=== PATIENT | female | born 1960 | race Caucasian/White ===

== ENCOUNTER 2022-05-17 12:18 | Emergency (ER) | payer MEDICARE ==
[2022-05-17] MEDS ORDERED: predniSONE 20 MG TAB ONE (13:24)
[2022-05-17] MEDS ORDERED: AMOXicillin 250 MG CAP ONE (13:24)
== END 2022-05-17 13:33 | disposition home or self-care (01) ==
LOC: NAV ERS 12:18
DX: J06.9 Acute upper respiratory infection, unspecified (principal); J44.9 Chronic obstructive pulmonary disease, unspecified; I10 Essential (primary) hypertension; F17.210 Nicotine dependence, cigarettes, uncomplicated
CPT/HCPCS: 71046; 87804; J7512

== ENCOUNTER 2024-03-26 09:01 | Emergency (ER) | payer OTHER, SELFPAY | END 2024-03-26 10:34 | disposition home or self-care (01) | LOC: NAV ERS 09:01 | DX: S92.415A Nondisplaced fracture of proximal phalanx of left great toe, initial encounter for closed fracture (principal); S93.401A Sprain of unspecified ligament of right ankle, initial encounter; S80.02XA Contusion of left knee, initial encounter; J44.9 Chronic obstructive pulmonary disease, unspecified; F17.210 Nicotine dependence, cigarettes, uncomplicated; W10.9XXA Fall (on) (from) unspecified stairs and steps, initial encounter | CPT/HCPCS: 99283 ==

== ENCOUNTER 2024-04-04 15:04 | Emergency (ER) | payer OTHER ==
[~2024-04-04 15:04] MED LIST: Iopamidol 370 76% 100 ML VIAL ONE
[2024-04-04] MEDS ORDERED: Sodium Chloride 0.9% 1,000 ML ONE (15:39)
[2024-04-04] MEDS ORDERED: Albuterol 2.5 MG (3 mL) NEB ONE (15:54)
[2024-04-04] MEDS ORDERED: Budesonide 0.5 MG/2 ML NEB ONE (15:54)
[2024-04-04] MEDS ORDERED: fentaNYL 50 mcg/mL 1 mL Vial ONE (15:55)
[2024-04-04] MEDS ORDERED: HYDROcodone/Acetaminophen 5/325 mg Tablet ONE (15:55)
[2024-04-04] MEDS ORDERED: methylPREDNISolone Sod Succ/PF 125 MG/2 ML VIAL ONE (15:55)
[2024-04-04 16:02] LABS: #Basophils 0.1 thou/uL (0.0-0.2); #Lymphocytes 2.7 thou/uL (1.20-3.40); #Monocytes 0.6 thou/uL (0.11-0.59); %Basophils 1.1 % (0.0-1.0); %Eosinophils 0.7 % (0.0-10.0); %Lymphocytes 32.6 % (21.0-51.0); %Monocytes 6.8 % (0.0-10.0); %Neutrophils 59.3 % (42.0-75.0); Hematocrit 47.8 % (36.0-47.0); Hemoglobin 16.1 g/dL (12.0-16.0); Manual Diff?? NO; Mean Corpuscular HGB CONC 33.7 g/dL (32.0-36.0); Mean Corpuscular Hemoglobin 33.7 pg (27.0-31.0); Mean Platelet Volume 8.9 fL (7.4-10.4); Platelet Count 117 10x3/uL (130-400); RBC Distribution Width 11.5 % (11.5-14.5); Red Blood Cell (RBC) Count 4.76 mill/uL (4.20-5.40); White Blood Cell (WBC) Count 8.4 10x3/uL (4.8-10.8)
[2024-04-04 16:14] LABS: ALT (SGPT) 14 U/L (8-55); AST (SGOT) 17 U/L (5-34); Albumin 3.5 g/dL (3.4-4.8); Alkaline Phosphatase 76 U/L (40-110); Anion Gap 18 mmol/L (10-20); BUN (Urea Nitrogen) 4 mg/dL (9.8-20.1); Bilirubin, Total 0.4 mg/dL (0.2-1.2); Calc. Creatinine Clearance 0 mL/min (70-130); Calcium 9.4 mg/dL (7.8-10.44); Carbon Dioxide 21 mmol/L (23-31); Chloride 102 mmol/L (98-107); Estimated GFR 93; Globulin 3.2 g/dL (2.4-3.5); Glucose 95 mg/dL (80-115); Potassium 3.8 mmol/L (3.5-5.1); Protein, Total 6.7 g/dL (5.8-8.1); Sodium 137 mmol/L (136-145)
[2024-04-04 16:15] LABS: Troponin I Less than 0.010 ng/mL (< 0.028)
[2024-04-04 16:15] LABS: Bilirubin Negative (Negative); Blood, Urine Negative (Negative); Clarity Clear (Clear); Glucose, Urine (Dipstick) Negative (Negative); Ketone, Urine Negative (Negative); Leukocyte Negative (Negative); Nitrite Negative (Negative); Protein, Urine (Dipstick) Negative (Neg-Trace); Urobilinogen 0.2 mg/dL (Less than 2)
[2024-04-04 16:16] LABS: Specific Gravity, Urine 1.005 (1.002-1.036); Urine Culture Reflex No No
== END 2024-04-04 17:30 | disposition home or self-care (01) ==
LOC: NAV ERS 15:04
DX: J44.1 Chronic obstructive pulmonary disease with (acute) exacerbation (principal); J98.01 Acute bronchospasm; R07.89 Other chest pain; R09.1 Pleurisy; F17.210 Nicotine dependence, cigarettes, uncomplicated; I10 Essential (primary) hypertension; K21.9 Gastro-esophageal reflux disease without esophagitis; E03.9 Hypothyroidism, unspecified; Z79.899 Other long term (current) drug therapy
CPT/HCPCS: 71275; 80053; 81001; 83880; 84484; 85025; 85379; 96374; 96375; J2919; J3010; J7030; J7611; J7626; Q9967

== ENCOUNTER 2024-05-30 10:39 | Emergency (ER) | payer OTHER ==
[2024-05-30] MEDS ORDERED: Naproxen 500 MG TAB ONE (12:23)
[2024-05-30] MEDS ORDERED: Bacitracin 1 PK ONE (12:23)
[2024-05-30] MEDS ORDERED: Boostrix 0.5 ML (Tdap) VIAL (>/=7 yrs of age) ONE (12:23)
== END 2024-05-30 12:55 | disposition home or self-care (01) ==
LOC: NAV ERS 10:39
DX: S80.01XA Contusion of right knee, initial encounter (principal); I10 Essential (primary) hypertension; F17.210 Nicotine dependence, cigarettes, uncomplicated; J44.9 Chronic obstructive pulmonary disease, unspecified; Z23 Encounter for immunization; W18.30XA Fall on same level, unspecified, initial encounter
CPT/HCPCS: 90471; 90715